=== PATIENT | female | born 1990 | race Caucasian/White ===

== ENCOUNTER 2023-12-03 09:18 | Emergency (ER) | payer SELFPAY ==
[2023-12-03 10:15] LABS: CORONAVIRUS COVID-19 NAA NEGATIVE (NEGATIVE); INFLUENZA A NAA NEGATIVE (NEGATIVE); RESPIRATORY SYNCYTIAL VIR NAA NEGATIVE (NEGATIVE)
== END 2023-12-03 09:55 | disposition home or self-care (01) ==
LOC: JD.ED 09:18
DX: J01.10 Acute frontal sinusitis, unspecified (principal); Z20.822 Contact with and (suspected) exposure to COVID-19
CPT/HCPCS: 0241U; 87651; 99283; 99282